=== PATIENT | male | born 1965 | race African-American/Black ===

== ENCOUNTER 2020-06-23 06:44 | Emergency (ER) | payer OTHER ==
[~2020-06-23] VITALS: Ht 177.8 cm; Wt 95.3 kg
[2020-06-23] MEDS ORDERED: GENTAMICIN SULF5 ML OU (10:04)
[2020-06-23 11:15] VITALS: BP 149/82
== END 2020-06-23 11:15 | disposition designated cancer center or children's hospital (05) | DRG 918 ==
LOC: ED 06:44
PROC: 0HQ1XZZ Repair Face Skin, External Approach (ICD-10-PCS; principal; 2020-06-23)
DX: T54.93XA Toxic effect of unspecified corrosive substance, assault, initial encounter (principal); H10.213 Acute toxic conjunctivitis, bilateral; S01.111A Laceration without foreign body of right eyelid and periocular area, initial encounter; I10 Essential (primary) hypertension; Y04.2XXA Assault by strike against or bumped into by another person, initial encounter; Y92.149 Unspecified place in prison as the place of occurrence of the external cause